=== PATIENT | male | born 1955 | race Caucasian/White ===

== ENCOUNTER 2016-11-17 09:02 | Inpatient (IN) | payer MEDICARE ==
[~2016-11-17] VITALS: Ht 188 cm; Wt 138.0 kg
--- NOTE | ~2016-11-17 | HP ---
ADMIT: 11/17/2016 RM/LOC: 428 [facility] MR#: [id number] [address] [address] JODEE KEATING [address] [place] [address] History and Physical SEX: M AGE: 61 : 1955 CORRECTED: 01/12/2017 1216 AND 01/13/2017 0925 [facility] DATE OF SERVICE: CHIEF COMPLAINT: Urinary tract infection. CLINICAL HISTORY: Mr. Keating presented with fever, normal blood pressure, normal saturation, slightly elevated pulse, and normal lactate because of a urinary tract infection. He is a patient with advanced MS, who has had spastic bladder and he relies upon q.i.d. bladder catheterizations for bladder control. He has also been through Botox bladder trigone injection on multiple episodes. His other health history includes a history of DVT, rather extensive with factor V Leiden deficiency, chronic anticoagulation and prior IVC filter. Mr. Keating had been in his usual state of health and presented with the above. MEDICATIONS: Please see current list. His is an RN, who cares for him, and both recognized the probable bladder source. REVIEW OF SYSTEMS: He has history of colonic polyps but has had no colon issues except chronic constipation. He has chronic nonpitting edema; degenerative arthritis, cervical spine; and again, rather advanced MS. PHYSICAL EXAMINATION: GENERAL: Reveals a mildly flushed individual. HEAD AND NECK: Otherwise, unremarkable. There is no current nystagmus, diplopia, or extraocular muscle abnormalities. LUNGS: Clear. HEART: The heart was without findings except a pulse rate at 110. ABDOMEN: Benign. Muscle tension, muscle tone is reduced in the abdominal wall but no definite hernia or palpable mass. EXTREMITIES: Essentially paralytic, lower, with non-pitting edema. No evidence of skin breakdown or cellulitis, and the catheter is currently in place. NEUROLOGICAL: His global weakness and sensory loss are notable, but his higher cortical centers are normal, and he understands his condition. ADMIT: 11/17/2016 RM/LOC: 428 [facility] MR#: [id number] [address] [address] JODEE KEATING [address] [place] [address] History and Physical SEX: M AGE: 61 : 1955 IMPRESSION: 1. Genitourinary infection. 2. History of multiple sclerosis-related spastic bladder. 3. Advanced multiple sclerosis. 4. Hyperlipidemia. 5. Degenerative arthritis. 6. Extensive deep vein thrombosis, right leg. 7. Status post IVC filter. 8. Factor V Leiden deficiency. Alotn Ibanez MD/ daishal JOB #: [id number] CC: Alton Ibanez MD, Attending Physician Alton Ibanez MD, Family Physician CORRECTED: 01/12/2017 1216 AND 01/13/2017 0942 [facility]
[~2016-11-17 09:02] MED LIST: ATIVAN1 MG PO; B-121000 MCG PO; BENADRYL25 MG PO; CENTRUM SILVER1 EAC1 PO; CITRACAL SOFT1 EACH PO; COUMADIN5 MG PO; CRESTOR20 MG PO; DELTASONE DPS10 MG PO; DITROPAN PO; DULCOLAX5 MG PO; LASIX80 MG PO; LEXAPRO DPS20 MG PO; LISINOPRIL5 MG PO; LOPRESSOR50 MG PO; OSTEO BI-FLEX1 EAC1 PO; PEPCID20 MG PO; TESTOSTERO200 MG/1 M IM; TYSABRI300 MG/15 IV; VIT D3 PO; VITAMIN C WIT1000 MG PO
--- NOTE | 2016-11-18 16:11 | ER ---
ADMIT: 11/17/2016 RM/LOC: 427 [facility] MR#: [id number] ACC#: [id number] [address] JODEE SÁNCHEZ [address] [place] [address] Emergency Room Report SEX: M AGE: 61 : 1955 DATE: 11/17/2016 TIME: 0902 hours. Please refer to my T-sheet for complete H and P. Briefly, the patient is a 61-year-old who comes in with weakness, fever, has a history of MS. He does self cath. He is nonambulatory. He said he had the chills last night, felt very weak. By the time he got here, he had some Tylenol and he feels a little bit better. PHYSICAL EXAMINATION: VITAL SIGNS: Blood pressure 145/89, pulse 125, respirations 18, temp 99.4, and sat 96%. GENERAL: No acute distress. HEENT: Grossly normal. LUNGS: Clear. HEART: Regular. ABDOMEN: Soft, really nontender. SKIN: No rash. NEURO: He is at his baseline. EMERGENCY DEPARTMENT COURSE: We did the whole sepsis protocol. His lactate was 1.7. CBC was normal except white count 19.7, hemoglobin 13.8, and platelets 129. Chemistries essentially normal. Cardiac normal. His INR was 3. UA showed positive nitrites, 64 white cells, 3+ leukocyte esterase. It was sent for culture. Blood cultures x2 were sent. Chest x-ray showed no acute findings. EKG was sinus tach, rate 123. No changes. We did the fluid bolus. We gave him Azactam and vancomycin because he has a pen allergy. I talked to Dr. Ibanez who will admit to the hospital. ASSESSMENT: 1. Sepsis. 2. Urinary tract infection and the most likely source. 3. MS. PLAN: Admit to the hospital. Jorge Alberto Franco MD/ italo JOB #: [id number] CC: Alton Ibanez MD, Attending Physician Alton Ibanez MD, Family Physician
[2016-11-22] MEDS ORDERED: ZANAFLEX4 MG PO ×2 (11:43→11:44)
[2016-11-22] MEDS ORDERED: DITROPAN-DPS5 MG PO (11:44)
[2016-11-22] MEDS ORDERED: VITAMIN D2000 UNI1 PO (11:46)
[2016-11-22] MEDS ORDERED: ASCORBIC ACID500 MG PO (11:47)
[2016-11-22] MEDS ORDERED: COLACE-DPS100 MG PO (11:47)
[2016-11-22] MEDS ORDERED: MAPAP PM (TYLEN1 TAB PO (11:50)
[2016-11-22] MEDS ORDERED: LEVAQUIN DPS500 MG PO (11:51)
[2016-11-22] MEDS ORDERED: GENTAMICIN40 MG/1 ML IM (11:56)
--- NOTE | 2017-01-30 11:04 | DS ---
ADMIT: 11/17/2016 RM/LOC: 428 [facility] MR#: [id number] [address] [address] BRENNAN KEATING [address] [place] [address] Discharge Summary SEX: M AGE: 61 : 1955 CORRECTED: 01/12/2017 1229 AND 01/13/2017 0920 [facility] ADMISSION DATE: 11/17/2016 DISCHARGE DATE: 11/21/2016 DISMISSAL DIAGNOSES: 1. Klebsiella urinary tract infection. 2. Staph epi blood culture contaminant. 3. Genitourinary infection. 4. History of multiple sclerosis-related spastic bladder. 5. Advanced multiple sclerosis. 6. Hyperlipidemia. 7. Degenerative arthritis. 8. Extensive deep vein thrombosis, right leg. 9. Status post IVC filter. 10.Factor V Leiden deficiency. CLINICAL HISTORY: Brennan Keating was admitted to the hospital with a urinary tract infection, low-grade fever, flushing, and felt ill. Blood cultures were negative. Urinary culture demonstrated Klebsiella, sensitive to all except ampicillin. HOSPITAL COURSE: He was seen and evaluated; started on antibiotics; developed some mild atelectasis, but this resolved with position and pulmonary hygiene. He remained in sinus rhythm and made an uneventful recovery. His catheter was discontinued and his return to home catheterization every 6 hours was encouraged. He was dismissed on: 1. Ativan 1 mg p.o. b.i.d. p.r.n. 2. Tylenol PM at bedtime p.r.n. 3. Colace p.r.n. 4. Coumadin 5 mg daily. 5. Crestor 20 mg at bedtime. 6. Ditropan 5 mg at bedtime. 7. Lexapro 20 mg daily. 8. Lopressor 50 mg daily. ADMIT: 11/17/2016 RM/LOC: 428 [facility] MR#: [id number] 2620 [facility] [address] [place] [address] BRENNAN KEATING [address] [place] [address] Discharge Summary SEX: M AGE: 61 : 1955 9. Metamucil p.r.n. 10.Tylenol p.r.n. 11.Multivitamin. 12.Oral vitamin C. 13.Oral vitamin B and D on a personal basis. 14.Zanaflex 8 mg at bedtime and 4 mg daytime p.r.n. muscle spasms was continued. 15.Depo-Testosterone 200 mg monthly. 16.He will continue on his Tysabri 300 mg on a monthly basis, but we have asked him to defer this for one week post discharge. Alton Ibanez MD/ njv JOB #: [id number] CC: Alton Ibanez MD, Attending Physician Alton Ibanez MD, Family Physician CORRECTED: 01/12/2017 1229 AND 01/13/2017 0920 [facility]
== END 2016-11-21 16:48 | disposition home or self-care (01) | DRG 690 ==
LOC: ER 09:02 → 4PCU 12:10
PROVIDERS: ADMIT Internal Medicine
DX: N39.0 Urinary tract infection, site not specified (principal); D68.2 Hereditary deficiency of other clotting factors; B96.1 Klebsiella pneumoniae [K. pneumoniae] as the cause of diseases classified elsewhere; G35 Multiple sclerosis; Z86.718 Personal history of other venous thrombosis and embolism; Z86.010 Personal history of colon polyps; M47.812 Spondylosis without myelopathy or radiculopathy, cervical region; M47.816 Spondylosis without myelopathy or radiculopathy, lumbar region